=== PATIENT | male | born 1940 | race Caucasian/White ===

== ENCOUNTER 2019-05-23 22:21 | Emergency (ER) | payer OTHER ==
[~2019-05-23] VITALS: Ht 185.4 cm; Wt 102.3 kg
[2019-05-23 22:32] VITALS: Ht 185.4 cm; Wt 102.3 kg
[2019-05-23] MEDS ORDERED: SINEMET 25-2501 EACH PO (22:33)
[2019-05-23] MEDS ORDERED: MIRAPEX1 MG PO (22:34)
[2019-05-23] MEDS ORDERED: LASIX20 MG PO (22:34)
[2019-05-23] MEDS ORDERED: K-TAB10 MEQ PO (22:34)
[2019-05-23] MEDS ORDERED: FLOMAX0.4 MG PO (22:34)
[2019-05-24] MEDS ORDERED: HYDROCODONE-A1 UDTA2 PO (01:09)
[2019-05-24] MEDS ORDERED: KEFLEX500 MG PO (01:09)
[2019-05-24 04:10] VITALS: BP 160/89
== END 2019-05-24 01:56 | disposition home or self-care (01) ==
LOC: D.ER 22:21
DX: S61.211A Laceration without foreign body of left index finger without damage to nail, initial encounter (principal); W31.2XXA Contact with powered woodworking and forming machines, initial encounter

== ENCOUNTER 2019-11-08 07:45 | Inpatient (IN) | payer OTHER ==
[2019-11-06 11:27] LABS: CALC OSMOLALITY 284 mosm/kg (275-300); CALCIUM 9.1 mg/dL (8.5-10.1); CARBON DIOXIDE 30.2 mmol/L (21.0-32.0); CHLORIDE - SERUM 105 mmol/L (98-107); GLUCOSE 100 mg/dL (74-106); POTASSIUM - SERUM 4.3 mmol/L (3.5-5.1); SODIUM 142 mmol/L (136-145); UREA NITROGEN 18 mg/dL (7-18); eGFR NON AFRICAN AMERICAN 76 mL/min (90-120)
[2019-11-06 11:32] LABS: INR 1.03 (0.85-1.17); PROTIME 13.5 SECONDS (11.6-15.0)
[2019-11-06 11:51] LABS: BASOPHILS 2.3 % (0-2); EOSINOPHILS 2.5 % (0-7); HEMATOCRIT 39.3 % (42.0-54.0); HEMOGLOBIN 12.6 g/dL (13.5-17.5); IMMATURE GRANULOCYTES 0.4 % (0-5); LYMPHOCYTES 21.6 % (15-50); MCH 28.4 pg (26.0-34.0); MCHC 32.1 g/dL (31.0-37.0); MCV 88.5 fL (80.0-100.0); MEAN PLATELET VOLUME 9.6 fL (7.4-10.4); MONOCYTES 6.6 % (2-11); NEUTROPHILS 66.6 % (40-80); RBC 4.44 10x6/uL (4.20-6.10); RDW 15.3 % (11.5-14.5); WBC 4.9 10x3/uL (4.8-10.8)
[2019-11-06 12:11] LABS: PLATELET COUNT 314 10x3/uL (130-400)
[~2019-11-08] VITALS: Ht 185.4 cm; Wt 100.0 kg
--- NOTE | ~2019-11-08 | HEMODYNAMI ---
PATIENT:EVELIO MANDEL MEDICAL RECORD: [id number] : 36 LOCATION:[facility] ADMISSION DATE: 11/08/19 Generatedon:11/08/201910:54 Patient name: EVELIO MANDEL Patient #: [id number] SSN: : 1940 Date of study: 11/08/2019 Page: Of Hemodynamic Procedure Report Patient Data Patient Demographics Procedure consent was obtained First Name: EVELIO Gender: Male Last Name: TEQUILA : 1940 Middle Initial: R Age: 79 year(s) Patient #: [id number] Race: Unknown Additional ID: [id number] Contact details Address: [address] [place] [address] State: [place] City: [facility] Zip code: [address] Past Medical History Allergies Allergen Reaction Date Comments Reported Other allergy 11/08/2019 NIACIN Admission Admission Data Admission Date: 11/08/2019 Admission Time: 11:00 Procedure Procedure Types Cath Procedure Peripheral Cath Diagnostic Procedure Nephro Perc Neph Uret Cath Procedure Description Procedure Date Procedure Date: 11/08/2019 Procedure Start Time: 10:20 Procedure End Time: 10:53 Procedure Staff Name Function Jesus Redmond MD Performing Physician ERIN SCHWARZ RT Monitor Fernandez Cobb RT Scrub Venessa Turcios RN Nurse Procedure Data Cath Procedure Fluoroscopy Diagnostic fluoroscopy Total fluoroscopy Time: 7.3 time: 7.3 min min Contrast Material Contrast Material Type Amount (ml) Isovue 300 25 Procedure Medications Medication Administration Route Dosage Heparin Flush Bag added to field 2 bags (1000units/500ml NS) Lidocaine 1% added to field 20 Versed I.V. 1 mg Fentanyl I.V. 50 mcg Benadryl I.V. 50 mg Versed I.V. 1 mg Fentanyl I.V. 50 mcg unlisted medication 1 Hemodynamics Rest Heart Rate: 76 (bpm) Snapshots Pre Cath Intra NCS Post Cath Vital Signs Time Heart Resp SPO2 etCO2 NIBP (mmHg) Rhythm Pain Sedation Rate (ipm) (%) (mmHg) Status Level (bpm) 10:08:23 75 16 98 38 156/92(131) NSR 0 (11) 10(A) , No pain 10:12:36 195 15 97 35.8 157/93(132) NSR 0 (11) 10(A) , No pain 10:16:53 67 16 95 35.8 157/86(129) NSR 0 (11) 10(A) , No pain 10:21:11 64 15 99 38.8 157/82(129) NSR 0 (11) 10(A) , No pain 10:25:29 64 14 94 40.3 142/80(118) NSR 0 (11) 10(A) , No pain 10:29:43 63 14 96 39.5 142/79(117) NSR 0 (11) 10(A) , No pain 10:33:57 63 14 96 40.3 138/75(110) NSR 0 (11) 10(A) , No pain 10:38:09 64 14 96 41 152/76(128) NSR 0 (11) 10(A) , No pain 10:42:25 62 12 94 42.5 139/80(105) NSR 0 (11) 10(A) , No pain 10:46:38 62 12 94 43.3 129/70(101) NSR 0 (11) 10(A) , No pain 10:50:51 70 13 94 40.3 121/70(101) NSR 0 (11) 10(A) , No pain Medications Time Medication Route Dose Verified Delivered Reason Notes Effe ctiveness by by 10:11:49 Heparin Flush added 2 M J Long M J Long used for Bag to bags MD MIRANDA procedure (1000units/500ml field NS) 10:12:02 Lidocaine 1% added 20ml M J Long M J Long for local to vial MD MIRANDA anesthetic field 10:12:55 cefepime ivpb 1 gm M J Long Venessa Per MD Tam ATKINSON physician 10:18:40 Versed I.V. 1 mg M J Long Venessa for MD Tam ATKINSON sedation 10:18:50 Fentanyl I.V. 50 M J Long Venessa for mcg MD Tam ATKINSON sedation 10:19:49 Benadryl I.V. 50 mg M J Long Venessa Per MD Tam RN physician 10:35:23 Versed I.V. 1 mg Jesus Clifford for MD Turcios RN sedation 10:35:33 Fentanyl I.V. 50 Jesus Clifford [place] [facility] [place] Turcios RN sedation Procedure Log Time Note 9:39:13 Use device set IR Diagnostic 9:39:14 Bag Decanter () opened to sterile field. 9:39:14 Sterile Angiographic Pack opened to sterile field. 9:39:15 Tegaderm 4 x 4 ([id number]) opened to sterile field. 9:39:23 KIT, INTRODUCER ACCUSTICK II W/C ([id number]) opened to sterile field. 9:53:02 ERIN SCHWARZ RT (R) sent for patient. Start room use. 9:53:25 Patient received from Outpatients to IR Alert and oriented. Tansferred to table in Prone position. 10:07:12 Signed procedure consent form obtained from patient. 10:07:13 Warm blankets applied, and ronald hugger turned on for patient comfort. 10:07:14 Correct patient and procedure confirmed by team. 10:07:14 ECG and BP/O2 sat monitors applied to patient. 10:07:15 Vital chart was started 10:07:16 Baseline sample Acquired. 10:07:19 Full Disclosure recording started 10:07:20 - 10:07:23 H&P Date Dictated: 11/08/2019 H&P Addendum completed by physician on day of procedure. (MUST COMPLETE FOR ALL OUTPATIENTS). 10:07:24 Pre-procedure instructions explained to patient. 10:07:25 Pre-op teaching completed and patient verbalized understanding. 10:07:26 Family in patients room. 10:07:29 Patient NPO since Midnight. 10:07:44 Patient allergic to Other allergyNIACIN 10:07:45 Is the patient allergic to Iodine/contrast media? No. 10:08:54 Is patient on blood thinner?No 10:08:55 Patient diabetic? No. 10:08:57 ----Pre-sedation anethsthesia assessment.---- 10:09:00 Previous problem with sedation/anesthesia? No ? 10:09:02 Snore? Yes 10:09:04 Sleep apnea? No 10:09:05 Deviated septum? No 10:09:06 Opens mouth fully? Yes 10:09:08 Sticks out tongue? Yes 10:09:13 Dentures? No ? 10:09:15 - 10:09:23 IV patent on arrival in left forearm with Lactated Ringers at [facility]. 10:09:32 Left Renal was prepped with chlora-prep and draped in sterile fashion. 10:09:33 Alarms reviewed by Joana Moseley 10:09:33 Sharps counted by scrub and verified by RRaymundo 10:09:34 - 10:11:49 Heparin Flush Bag (1000units/500ml NS) 2 bags added to field was administered by Jesus Redmond MD; used for procedure; Verbal order read back and verified. 10:12:02 Lidocaine 1% 20ml vial added to field was administered by Jesus Redmond MD; for local anesthetic; Verbal order read back and verified. 10:12:55 cefepime 1 gm ivpb was administered by Venessa Turcios RN; Per physician; Verbal order read back and verified. 10:15:38 Physician arrived 10:15:39 --------ALL STOP TIME OUT------ 10:17:08 CHIBA 22 X 15 needle opened to sterile field. 10:17:09 GLIDE CATHETER 5FR ANGLED 65cm (CG507) opened to sterile field. 10:17:24 Left Renal site verified by team. 10:17:41 Fire Safety Assessment: A--An alcohol-based skin anteseptic being used preoperatively., C--Open oxygen or nitrous oxide is being used. 10:17:46 2) 60-89 Mildly reduced kidney function, and other findings (as for stage 1) point to kidney disease. 10:18:17 Maximum allowable contrast dose (3.7 X eGFR X 0.75)210.9 ml. 10:18:40 Versed 1 mg I.V. was administered by Venessa Turcios RN; for sedation; Verbal order read back and verified. 10:18:50 Fentanyl 50 mcg I.V. was administered by Venessa Turcios RN; for sedation ; Verbal order read back and verified. 10:19:49 Benadryl 50 mg I.V. was administered by Venessa Turcios RN; Per physician ; Verbal order read back and verified. 10:20:22 Procedure started. 10:20:26 Local anesthetic to left renal area with Lidocaine 1% by Jesus Redmond MD.INITIAL ACCESS ONLY 10:21:28 CHIBA 22 X 15 needle opened to sterile field. 10:33:32 NITINOL .018 80cm wire ([id number]) opened to sterile field. 10:35:23 Versed 1 mg I.V. was administered by Venessa Turcios RN; for sedation; Verbal order read back and verified. 10:35:33 Fentanyl 50 mcg I.V. was administered by Venessa Turcios RN; for sedation ; Verbal order read back and verified. 10:40:08 Procedure ended.(Physican Out) 10:40:13 Fluoroscopy time 07.30 minutes. 10:40:19 Dose Area Product 231 mGy/cm. 10:40:22 Contrast amount:Isovue 300 25ml. 10:40:25 Sharps counted by scrub and verified by R.N. 10:40:37 Maximum allowable dose exceeded? No. 10:41:09 Post-op/insertion 5fr access catheter left in patients left renal area dressed using a 4 x 4 and Tegaderm. 10:42:21 Post procedure instruction explained to patient.Patient verbalizes understanding. 10:42:22 Procedure and supply charges have been captured, reviewed, submitted an d are correct. 10:53:13 Vital chart was stopped 10:53:15 See physician's report for complete and final results. 10:53:27 Patient transfered to Outpatients with Stretcher. 10:53:30 Procedure ended. 10:53:30 Full Disclosure recording stopped 10:53:39 End room use (Document Last) Device Usage Item Name Manufacture Quantity Catalog Hospital Part Current Minimal Lot# / Number Charge Number Stock Stock Serial# Code Bag Decanter Microtek 1 [id number] [id number] 5 () Medical Inc. Sterile Cardinal 1 [id number] [id number] 5 Angiographic Health Pack Tegaderm 4 x 3M 1 1626W 523706 [id number] [id number] 5 4 (1626W) KIT, [place] 1 [id number] [id number] [id number] 5 INTRODUCER Scientific ACCUSTICK II W/C ([id number]) CHIBA 22 X Cook Medical 2 [id number] 078300 744997 5 15 needle GLIDE Terumo 1 CG507 342689 947592 5 CATHETER 5FR ANGLED 65cm (CG507) NITINOL .018 Medtronic 1 [id number] 815800 601246 5 80cm wire ([id number]) Signature Audit [place] Stage Time Signature Unsigned Intra-Procedure 11/08/2019 ERIN SCHWARZ RT 10:54:01 AM (R) [facility] [address] [place] [address]
[~2019-11-08 07:45] MED LIST: FLOMAX0.4 MG PO; FLORAJEN3 CAPS460 MG PO; HYDROCODONE-A1 UDTA2 PO; K-TAB10 MEQ PO; KEFLEX500 MG PO; LASIX20 MG PO; MIRAPEX1 MG PO; MOBIC7.5 MG PO; NORCO-7.51 TAB PO; SINEMET 25-2501 EACH PO
[2019-11-08 09:00] VITALS: BP 146/72; BMI 30.6
[2019-11-08 11:00] VITALS: BP 134/74
--- NOTE | 2019-11-08 17:12 | NUR ---
1710 OPA DISCONTINUED. PATIENT AROUSABLE MAINTINING PATENT AIRWAY
[2019-11-08 17:53] VITALS: BP 156/83
--- NOTE | 2019-11-08 17:56 | NUR ---
RECEIVED PATIENT FROM RECOVERY. ALERT AND ORIENTED. NO C/O PAIN. NO S/S OF ACUTE DISTRESS NOTED. FAMILY AT BEDSIDE. VITALS STABLE. LEFT NEPHROSTOMY TUBE. THOMPSON CATHETER PRESENT. CALL LIGHT IN REACH. WILL CONTINUE TO MONITOR.
--- NOTE | 2019-11-08 18:40 | NUR ---
ALERT AND ORIENTED. VISITING WITH FAMILY. NO C/O PAIN. NO S/S OF ACUTE DISTRESS NOTED. DENIES ANY NEEDS AT THIS TIME. CALL LIGHT IN REACH. WILL CONTINUE TO MONITOR.
[2019-11-08 22:20] VITALS: BP 130/73; Ht 185.4 cm; Wt 100.0 kg
[2019-11-08 23:48] VITALS: BP 130/73
--- NOTE | 2019-11-09 00:24 | NUR ---
alert and orented able to voice needs and wants to staff. at bedside. F?C in place and paten with bloody urine to bag. dranage tub in place to left side back dressing CDI. with blody dranage noted to colection bag.
[2019-11-09 04:00] VITALS: BP 150/83
--- NOTE | 2019-11-09 07:57 | NUR ---
REPORT RECEIVED. WILL CONTINUE WITH POC. PT CURRENTLY LYING HIGH FOWLERS. CALL LIGHT W/I REACH. AT BEDSIDE. RR EVEN AND UNLABORED ON RA. NS INFUSING @75ML/HR VIA R.FOR PIV. THOMPSON AND NEPHROSTOMY DRAIN IN PLACE. PT DENIES ANY NEEDS. NO S/S OF DISTRESS NOTED. WILL CTM.
[2019-11-09 08:47] VITALS: BP 158/78
--- NOTE | 2019-11-09 08:50 | OP ---
PATIENT NAME: EVELIO MANDEL MEDICAL RECORD: [id number] :[birth year] LOCATION:D.MS [id number] ADMISSION DATE: SURGEON: ALEX BLUM MD DATE OF OPERATION: 11/08/2019 SURGEON: Alex Blum MD ANESTHESIA: General anesthesia by Chetna Fish CRNA DIAGNOSIS: Left renal stones, the largest is 16 mm in size. PROCEDURE: Left percutaneous nephrolithotomy (PCNL). SPECIMENS: Renal stones. FINDINGS: Radiodense renal stones. ESTIMATED BLOOD LOSS: Minimal. CLINICAL HISTORY: This is an 79-year-old male, who was referred by the Emergency Room with left flank pain. A CT scan on 10/16/2019 shows a 16-mm stone in the left renal pelvis as well as a 16-mm stone in the lower pole of the left kidney and several smaller stones. He still continues to have episodic left flank pain. Because of the stone burden, he is getting a left PCNL to get rid of all the stones at once. HE IS ALLERGIC TO NIACIN. He was given amoxicillin sulbactam 3 grams IV cellulose insulation helper to the OR. Earlier today, he had a left nephroureteral access placed by interventional radiology. DESCRIPTION OF PROCEDURE: The patient was given induction of general anesthesia in supine position on the stretcher. He was then placed into frogleg position and we performed cystoscopy on him. He has a tall bladder neck in his prostate and obstructive lateral lobes. Grasping forceps were used to pull the distal end of the nephroureteral catheter out of the bladder and out of the urethra. This will allow us to clamp the Amplatz Super Stiff access wire to prevent loss of the access tract in the near future. The patient was then turned into the prone position on the Hari frame. He was then reprepped and redraped. The nephroureteral catheter was accessed using an Amplatz Super Stiff wire. Once the wire came out of the penile urethra, then the circulating nurse clamped it with a hemostat. The nephroureteral catheter was then removed, leaving the wire in place. A 1-cm incision was made on either side of the wire. A dual-lumen catheter was inserted over the Super Stiff wire and the second lumen had a Sensor wire placed down into the bladder. Once the [address], the dual lumen catheter was removed, leaving the 2 wires. We clamped the sensor wire to the drapes as a safety wire. We worked over the Super Stiff wire. A NephroMax 30-Lebanese balloon dilator was inserted under fluoroscopic guidance and was placed in the renal pelvis. The balloon was then inflated with 16 atmospheres of pressure. The working sheath was placed. Then, the balloon was deflated and removed entirely. The nephroscope was then introduced. We immediately encountered the large 16 mm UP junction stone. It was too large to remove with a 3.04 wire basket. Therefore, I had to introduce this with LithoClast and used the ultrasonic modality to break the stone up into smaller pieces. We were then able to use the basket and remove all of the smaller pieces. Looking under fluoroscopy, we could still see a radiodensity somewhat more lateral to our access. We pulled the sheath back and gradually we found the stones embedded in an anterior maribel. These were knocked down out of the OPERATIVE REPORT [id number] EVELIO MANDEL anterior maribel into the renal pelvis using grasping forceps or in one case just by hitting it with the basket. Finally, we had removed all of the visible stones radiographically. Going back in, I verified that there were no other stones visible. There was a very tiny speck about 3 to 4 mm in size and we removed this with the basket. We could now see no further stones anywhere. The scope was then removed. Over the Super Stiff wire, we inserted a 24-Lebanese Malecot nephrostomy tube. Once the nephrostomy tube was in position, the 2 sets of wires were entirely removed. The working sheath was removed entirely. The nephrostomy tube was sutured to the skin using 2-0 nylon. Dressings were applied and the nephrostomy tube was put to bag drainage. The stones will be sent for stone analysis. TRANSINT:[id number] Voice Confirmation ID: [id number] DOCUMENT ID: [id number] ALEX BLUM MD at 0850 CC: [id number] DICTATION DATE: 11/08/19 170 SALES CENTER ASSOCIATE: 11/09/19 0044 [facility] [address] [place] [address]
[2019-11-09 12:38] VITALS: BP 142/70
--- NOTE | 2019-11-09 14:19 | NUR ---
I have reviewed this patient and I concur with the Shift Assessment completed by the Licensed Practical Nurse today this shift.
--- NOTE | 2019-11-09 16:47 | NUR ---
THOMPSON REMOVED. 1100 TOTAL OUTPUT RECORDED. WILL CTM.
[2019-11-09 17:16] VITALS: BP 127/62
[2019-11-09 20:00] VITALS: BP 144/68
--- NOTE | 2019-11-09 20:00 | NUR ---
PATIENT RESTING IN BED WITH AT BEDSIDE. NO S/S OF DISTRESS. NO C/O AT THIS TIME. PATIENT HAS A LEFT FOREARM IV NORMAL SALINE @ 75 ML/HR. IV IS PATENT WITHOUT REDNESS, SWELLING, OR TENDERNESS. PATIENT HAS A NEPHROSTOMY TUBE ON LEFT FLANK THAT RUNS INTO A THOMPSON BAG. DRESSING IS C/D/I, AND URINE IS BLOODY. PATIENT EXPRESSED CONCERNS ABOUT NOT HAVING A BOWEL MOVEMENT YET, BUT WANTS TO WAIT ON MEDICATION UNTIL PT CAN AMBULATE. CALL LIGHT IN PLACE. WILL CONTINUE TO MONITOR.
--- NOTE | 2019-11-10 01:26 | NUR ---
I have reviewed this patient and I concur with the Shift Assessment completed by the Licensed Practical Nurse today this shift.
[2019-11-10 04:00] VITALS: BP 132/71
--- NOTE | 2019-11-10 07:29 | NUR ---
PT SITTING UP IN BED. RR EVEN AND UNLABORED ON RA. DENIES NEEDS OR PAIN AT THIS TIME. CALL LIGHT WITHIN REACH. BED IN LOWEST POSITON. WILL CONTINUE TO MONITOR.
[2019-11-10 08:33] VITALS: BP 165/78
--- NOTE | 2019-11-10 11:38 | NUR ---
PT RECIEVED PRUNE JUICE AND SPRITE MIX PER REQUEST. STATES HE FEELS IF HE CANNOT GO TO BATHROOM. BED IN LOWEST POSITION. CALL LIGHT WITHIN REACH. FAMILY AT BEDSIDE. WILL CONTINUE TO MONITOR.
[2019-11-10 12:28] VITALS: BP 148/65
--- NOTE | 2019-11-10 14:08 | NUR ---
HAS AMBULATED IN HALLS. FAMILY AT BEDSIDE.DENIES NEEDS
--- NOTE | 2019-11-10 14:50 | NUR ---
DR. BLUM AT BEDSIDE. NEPHROSTOMY TUBE PULLED. DRESSING OF 4X4, ABD PAD, AND SURGICAL TAPE PLACED OVER. FAMILY MEMBERS OBSERVED. STATED THEY WERE COMFORTABLE WITH DRESSING CHANGES. WILL HAVE THEM RETURN DEMONSTRATION BEFORE D/C. PT STATES NO PAIN . CALL LIGHT WITHIN REACH. WILL CONTINUE TO MONITOR.
[2019-11-10] MEDS ORDERED: TYLENOL W/CODEI1 TAB PO (15:13)
--- NOTE | 2019-11-10 15:16 | MORECARE ---
CASE MANAGEMENT DISCHARGE SUMMARY PATIENT: EVELIO MANDEL UNIT: [id number] ADM DATE: 11/08/19 AGE: 79 : 38 SEX: M ROOM/BED: D.2234 AUTHOR: MAURICE COTA PHYSICIAN: REFERRING PHYSICIAN: ALEX BLUM MD DATE OF SERVICE: 11/10/19 Discharge Plan Patient Name: EVELIO MANDEL Facility: [facility]:[place] : 1940 Planned Disposition: Anticipated Discharge Date: Discharge Date: Expected LOS: Initial Reviewer: [email or web address] Initial Review Date: 11/09/2019 Generated: 11/10/19 4:15 pm Comments DCP- Discharge Planning Updated by [email or web address]: Roxanna Oates on 11/10/19 2:[address] Patient Name: EVELIO MANDEL Admission Status: Elective Accout number: [id number] Admission Date: 11-08-2019 : 1940 Admission Diagnosis: Attending: HIPOLITO BLUM Current LOS: 2 Anticipated DC Date: Planned Disposition: Primary Insurance: [employer] Discharge Planning Comments: CM MET WITH PATIENT TO DISCUSS DC PLANNING/NEEDS AFTER OBTAINING VERBAL CONSENT. PLANS TO DC TO HOME. DENIES NEEDS FOR EQUIPMENT, HOME HEALTH OR REHAB. CM TO FOLLOW AND ASSIST NEEDED. IMM SIGNED. Raimann Machine Operator: Roxanna Oates Coverage Notice Reviewer: [email or web address] - Roxanna Oates Notice Issued Date-Time: 11/10/2019 15:13 Notice Type: IM Discharge Notice Notice Delivered To: Patient Relationship to Patient: Care Management Specialist Name: Delivery Method: HAND - Hand Delivered Caity Days: Prior Verbal Notification: Recipient Understood Notice: Yes Recipient Signature: Yes Med Rec Note Co-signed by Attending: Coverage Notice Comment: Patient Name: EVELIO MANDEL Page [phone] at 1516 All edits/amendments must be made on the electronic document DICTATION DATE: 11/10/191514 [place] INFORMATION CLERK: CUATE 11/10/19 1515 RPT#: [id number] DC DATE: STATUS: ADM IN [place] [address] [place] [address] END OF REPORT
--- NOTE | 2019-11-10 15:45 | NUR ---
D/C INSTRUCTION REVIEWED WITH PT AND FAMILY. FAMILY DEMONSTRATED PROPER WOUND CARE AND DRESSING CHANGE. ALL VERBALIZED AGREEMENT. IV D/C WITH CATHETER TIP INTACT. PT LEFT VIA WHEELCHAIR WITH ALL BELONGINGS.
--- NOTE | 2019-11-11 17:11 | MORECARE ---
CASE MANAGEMENT DISCHARGE SUMMARY PATIENT: EVELIO MANDEL UNIT: [id number] ADM DATE: 11/08/19 AGE: 79 : 38 SEX: M ROOM/BED: D.2234 AUTHOR: MAURICE COTA PHYSICIAN: REFERRING PHYSICIAN: ALEX BLUM MD DATE OF SERVICE: 11/11/19 Discharge Plan Patient Name: EVELIO MANDEL [facility] [facility] 1940 Planned Disposition: Anticipated Discharge Date: Discharge Date: 11/10/2019 Expected LOS: Initial Reviewer: [email or web address] Initial Review Date: 11/09/2019 Generated: 11/11/19 6:11 pm Comments DCP- Discharge Planning Updated by [email or web address]: Roxanna Oates on 11/10/19 2:[address] Patient Name: EVELIO MANDEL Admission Status: Elective Accout number: [id number] Admission Date: 11-08-2019 : 1940 Admission Diagnosis: Attending: HIPOLITO BLUM Current LOS: 2 Anticipated DC Date: Planned Disposition: Primary Insurance: [employer] Discharge Planning Comments: CM MET WITH PATIENT TO DISCUSS DC PLANNING/NEEDS AFTER OBTAINING VERBAL CONSENT. PLANS TO DC TO HOME. DENIES NEEDS FOR EQUIPMENT, HOME HEALTH OR REHAB. CM TO FOLLOW AND ASSIST NEEDED. IMM SIGNED. Coremaker Floor: Roxanna Oates Coverage Notice Reviewer: [email or web address] - Roxanna Oates Notice Issued Date-Time: 11/10/2019 15:13 Notice Type: IM Discharge Notice Notice Delivered To: Patient Relationship to Patient: Center Specialists Name: Delivery Method: HAND - Hand Delivered Caity Days: Prior Verbal Notification: Recipient Understood Notice: Yes Recipient Signature: Yes Med Rec Note Co-signed by Attending: Coverage Notice Comment: Last DP export: 11/10/19 2:16 p Patient Name: EVELIO MANDEL Page [phone] at 1711 All edits/amendments must be made on the electronic document DICTATION DATE: 11/11/191710 LATHE PULLER: CUATE 11/11/191710 RPT#: [id number] DC DATE:11/10/19 STATUS: DIS IN [facility] [address] [place] [address] END OF REPORT
== END 2019-11-10 17:30 | disposition home or self-care (01) | DRG 661 ==
LOC: D.MS 07:45 → D.OPS 07:45 → D.MS 07:46 → D.OPS 10:00 → D.PAN 11:00 → D.OPS 12:45 → D.MS 17:07 → D.OPS 17:07 → D.MS 11-10 17:30
PROVIDERS: Anesthesiology; Radiology Vascular & Interventional Radiology; ADMIT Urology; ATTEND Urology
PROC: 0T143JD Bypass Left Kidney Pelvis to Cutaneous with Synthetic Substitute, Percutaneous Approach (ICD-10-PCS; 2019-11-08)
PROC: 0TC43ZZ Extirpation of Matter from Left Kidney Pelvis, Percutaneous Approach (ICD-10-PCS; principal; 2019-11-08 09:30)
DX: N20.0 Calculus of kidney (principal); I10 Essential (primary) hypertension

== ENCOUNTER → 2019-11-23 11:34 | Outpatient (CLI) | payer OTHER ==
[2019-11-08 22:20] VITALS: BMI 29.0
[~2019-11-23 11:34] MED LIST changes: +TYLENOL W/CODEI1 TAB PO
== END | disposition home or self-care (01) ==
LOC: D.RAD 11:34
PROVIDERS: ATTEND Urology
DX: N20.0 Calculus of kidney (principal)